=== PATIENT | female | born 2000 | race Caucasian/White ===

== ENCOUNTER 2021-06-19 05:51 | Inpatient (IN) ==
[2021-06-19] MEDS ORDERED: BUTORPHANOL 2 MG/ML VIAL IV PRN (06:01)
[2021-06-19] MEDS ORDERED: MEPERIDINE 50 MG/1 ML VIAL IV PRN (06:01)
[2021-06-19] MEDS ORDERED: ONDANSETRON 4 MG/2 ML VIAL IV PRN (06:01)
[2021-06-19] MEDS: LACTATED RINGERS 1,000 ML IV SCH ×2 (06:27→10:11)
[2021-06-19] MEDS ORDERED: OXYTOCIN/LR 20 UNIT/1,000 ML BAG IV SCH (06:30)
[2021-06-19 06:42] LABS: Basophils % 0.3 % (0.0-0.8); Eosinophils # 0.1 10*3/uL (0.0-0.87); Eosinophils % 0.8 % (0.00-10.9); Hematocrit 36.9 VOL% (35.7-47.0); Hemoglobin 12.4 GM/DL (12.0-16.0); Immature Granulocytes % 1.7 %; Immature Granulocytes Absolute 0.24 #; Lymphocytes # 3.5 10*3/uL (1.4-4.0); Lymphocytes % 23.9 % (21.3-54.2); Mean Corpuscular HGB Conc 33.6 GM/DL (32-36); Mean Platelet Volume 10.4 FL (9.6-12.0); Monocytes % 6.1 % (1.7-12.7); Neutrophils % 67.2 % (38.7-73.9); Platelet Count 236 T/CUMM (130-400); Red Blood Count 4.29 MC/CUMM (3.8-5.5); Red Cell Distribution Width 13.9 % (9.3-17.3); White Blood Count 14.5 T/CUMM (4-12)
[2021-06-19 07:11] LABS: Hypochromia Slight; Lymphocytes 27 % (20-55); Microcytosis Slight; Platelet Estimate Adequate; Segmented Neutrophils 68 % (50-85); Total Cells Counted 100
[2021-06-19] MEDS ORDERED: NALOXONE 0.4 MG/ML VIAL IV PRN (07:29)
[2021-06-19] MEDS ORDERED: PROMETHAZINE 25 MG/1 ML VIAL IM PRN (07:29)
[2021-06-19] MEDS ORDERED: ePHEDrine 50 MG/ML VIAL IV PRN (07:29)
[2021-06-19] MEDS ORDERED: diphenhydrAMINE 50 MG/1 ML VIAL IV PRN (07:29)
[2021-06-19] MEDS ORDERED: fentaNYL 2 MCG/ROPIV 0.2% EPID 100 ML EPIDURAL SCH (07:30)
[2021-06-19] MEDS ORDERED: AMPICILLIN INJ 2,000 MG in SODIUM CHLORIDE 0.9% 100 ML IV ONE (08:00)
[2021-06-19] MEDS ORDERED: CITRIC ACID/SODIUM CITRATE 30 ML UDCUP PO ONE (09:00)
[2021-06-19] MEDS ORDERED: FAMOTIDINE 20 MG/2 ML VIAL IV ONE (09:00)
[2021-06-19] MEDS ORDERED: AMPICILLIN INJ 1,000 MG in SODIUM CHLORIDE 0.9% 100 ML IV SCH (11:30)
[2021-06-19 12:09] LABS: Glucose,Urine (UA) Negative (Negative); Ketones,Urine Negative (Negative); Nitrite,Urine Negative (Negative); Protein,Urine Negative; RBC,Urine <1 /HPF (0-4); Squamous Epithelial Cell,Urine Occasional /HPF (0-10); Urine Appearance Clear (Clear); Urine Color Light Yellow (Yellow); Urine Specific Gravity 1.302 (1.001-1.035); Urine pH 7.5 (4.5-8.0)
[2021-06-19 12:10] LABS: Bilirubin,Urine Negative (Negative); Blood, Urine Negative (Negative); Urine Urobilinogen 0.2 EU/DL (<2.0)
[2021-06-19] MEDS ORDERED: miSOPROStoL 200 MCG TABLET ONE (14:07)
[2021-06-19] MEDS ORDERED: METHYLERGONOVINE 0.2 MG/1 ML AMP ONE (14:07)
[2021-06-19] MEDS ORDERED: CARBOPROST TROMETHAMINE 250 MCG/ML AMP IM ONE (14:08)
[2021-06-19 16:24] LABS: Cord Venous Blood HCO3 23.1 MMOL/L; Cord Venous Blood PO2 25.6
[2021-06-19] MEDS ORDERED: OXYTOCIN/LR 20 UNIT/1,000 ML BAG IV ONE ×2 (19:34→21:04)
[2021-06-19] MEDS ORDERED: RHO(D) IMMUNE GLOBULIN 300 MCG SYRINGE IM ONE (21:04)
[2021-06-19] MEDS ORDERED: LANOLIN 50% CREAM 0.3 OZ TUBE TOP PRN (21:04)
[2021-06-19] MEDS ORDERED: BENZOCAINE 20%/MENTHOL 0.5% SPRAY 56 GM CAN TOP PRN (21:04)
[2021-06-19] MEDS ORDERED: DIPH/TET/ACEL PERT BOOSTER VACCINE 0.5 ML VIAL IM ONE (21:04)
[2021-06-19] MEDS ORDERED: BISACODYL 10 MG SUPP RECTAL PRN (21:04)
[2021-06-19] MEDS ORDERED: MEASLES/MUMPS/RUBELLA VACCINE 0.5 ML VIAL SUBCUT ONE (21:04)
[2021-06-19] MEDS ORDERED: WITCH HAZEL PADS 100/JAR TOP PRN (21:04)
[2021-06-19] MEDS ORDERED: ACETAMINOPHEN 325 MG TABLET PO PRN (21:04)
[2021-06-19] MEDS ORDERED: oxyCODONE/ACETAMINOPHEN 5-325 MG TABLET PO PRN (21:04)
[2021-06-19] MEDS ORDERED: HYDROCORTISONE 2.5% RECTAL CREAM 30 GM TUBE TOP PRN (21:04)
[2021-06-19] MEDS: DOCUSATE SODIUM 100 MG CAPSULE PO SCH (21:50)
[2021-06-19] MEDS: IBUPROFEN 800 MG TABLET PO PRN (21:55)
[2021-06-20 05:50] LABS: Basophils % 0.2 % (0.0-0.8); Eosinophils # 0.1 10*3/uL (0.0-0.87); Eosinophils % 0.5 % (0.00-10.9); Hematocrit 30.6 VOL% (35.7-47.0); Hemoglobin 10.1 GM/DL (12.0-16.0); Immature Granulocytes % 1.3 %; Immature Granulocytes Absolute 0.22 #; Lymphocytes # 3.7 10*3/uL (1.4-4.0); Lymphocytes % 21.9 % (21.3-54.2); Mean Corpuscular Volume 87.2 FL (87-102); Mean Platelet Volume 11.1 FL (9.6-12.0); Monocytes % 6.1 % (1.7-12.7); Platelet Count 194 T/CUMM (130-400); Red Blood Count 3.51 MC/CUMM (3.8-5.5); Red Cell Distribution Width 13.9 % (9.3-17.3); White Blood Count 16.9 T/CUMM (4-12)
[2021-06-20 06:16] LABS: Hypochromia 1+; Lymphocytes 20 % (20-55); Microcytosis 1+; Platelet Estimate Adequate; Segmented Neutrophils 73 % (50-85); Total Cells Counted 100
[2021-06-20] MEDS: oxyCODONE/ACETAMINOPHEN 5-325 MG TABLET PO PRN ×2 (07:44→18:55)
[2021-06-20] MEDS: DOCUSATE SODIUM 100 MG CAPSULE PO SCH ×2 (07:44→21:42)
[2021-06-20] MEDS: IBUPROFEN 800 MG TABLET PO PRN ×2 (07:45→18:55)
[2021-06-21] MEDS: oxyCODONE/ACETAMINOPHEN 5-325 MG TABLET PO PRN (04:00)
[2021-06-21] MEDS: IBUPROFEN 800 MG TABLET PO PRN (04:00)
[2021-06-21 07:26] VITALS: BP 109/71
[2021-06-21] MEDS: DOCUSATE SODIUM 100 MG CAPSULE PO SCH (09:19)
== END 2021-06-21 12:10 | disposition home or self-care (01) | DRG 560 ==
LOC: N.LD 05:51 → N.OB 20:45
PROVIDERS: ADMIT Obstetrics & Gynecology; ATTEND Obstetrics & Gynecology